=== PATIENT | female | born 1995 | race Caucasian/White ===

== ENCOUNTER 2017-03-27 00:54 | Emergency (ER) | payer SELFPAY ==
[~2017-03-27 00:54] MED LIST: NO HOME MEDICATION XX
[2017-03-27 02:06] LABS: URINE BILIRUBIN NEGATIVE (NEG); URINE BLOOD NEGATIVE (NEG); URINE GLUCOSE (UA) NEGATIVE (NEG); URINE KETONE NEGATIVE (NEG); URINE LEUKOCYTE ESTERASE NEGATIVE (NEG); URINE NITRITE NEGATIVE (NEG); URINE PROTEIN NEGATIVE (NEG)
[2017-03-27 02:08] LABS: URINE APPEARANCE CLEAR; URINE COLOR YELLOW
== END 2017-03-27 02:59 ==
LOC: EDMED 00:54
PROVIDERS: Emergency Medicine
DX: R51 Headache (principal); M54.9 Dorsalgia, unspecified; F17.200 Nicotine dependence, unspecified, uncomplicated
CPT/HCPCS: J0780; J1200; J1885; J7030